=== PATIENT | female | born 1995 | race Caucasian/White ===

== ENCOUNTER 2018-05-09 11:39 | Emergency (ER) | payer SELFPAY ==
--- NOTE | 2018-05-09 12:13 | ER Document Report ---
ED Medical Screen (RME) - General Chief Complaint: Vaginal Discharge Stated Complaint: ABDOMINAL PAIN, PAINFUL URINATION Time Seen by Provider: 05/09/18 12:06 Notes: Patient is a 23-year-old female that presents to the emergency department for chief complaint of vaginal discharge, urinary frequency and dysuria. Patient reports his been having pelvic cramping associated with the symptoms as well, she went to be checked out she did have atrial vaginosis back in January of last year and is concerned that it may have come back. She also is concerned about psoriasis along the back of her scalp, and is wondering if she could be treated for this as well.. ROS: Other than noted above, the 12 point review of systems was reviewed with the patient and were negative, all pertinent findings are included in the HPI. PHYSICAL EXAMINATION: Vital signs reviewed. GENERAL: Well-appearing, well-nourished and in no acute distress. HEAD: Atraumatic, normocephalic. There is noted to be psoriatic plaque noted on the base of the scalp posteriorly EYES: Pupils equal round extraocular movements intact, conjunctiva are normal. ENT: Nares patent NECK: Normal range of motion CV: Heart regular rate and rhythm LUNGS: No respiratory distress Musculoskeletal: Normal range of motion NEUROLOGICAL: Normal speech PSYCH: Normal mood, normal affect. MDM: Patient seen and examined for rapid initial assessment. Vital signs reviewed. A comprehensive ED assessment and evaluation of the patient, analysis of test results and completion of the medical decision making process will be conducted by additional ED providers. *Note is created using voice recognition software and may contain spelling, syntax or grammatical errors. TRAVEL OUTSIDE OF THE [place] IN LAST 30 DAYS: No - Related Data Allergies/Adverse Reactions: No Known Allergies Allergy (Verified 05/09/18 11:42) Past Medical History - Social History Chew tobacco use (# tins/day): No Frequency of alcohol use: Rare Drug Abuse: None Renal/ Medical History: Denies: Hx Peritoneal Dialysis Physical Exam - Vital signs Vitals: Temp Pulse Resp BP Pulse Ox 98.6 F 70 16 114/60 99 05/09/18 11:55 05/09/18 11:55 05/09/18 11:55 05/09/18 11:55 05/09/18 11:55 Course - Vital Signs Vital signs: Temp Pulse Resp BP Pulse Ox 98.6 F 70 16 114/60 99 05/09/18 11:55 05/09/18 11:55 05/09/18 11:55 05/09/18 11:55 05/09/18 11:55
[2018-05-09 13:04] LABS: APPEARANCE,URINE SLIGHTLY-CLOUDY; BILIRUBIN,URINE NEGATIVE (NEGATIVE); COLOR,URINE YELLOW; GLUCOSE, URINE NEGATIVE (NEGATIVE); KETONES,URINE NEGATIVE (NEGATIVE); LEUKOCYTE ESTERASE,URINE NEGATIVE (NEGATIVE); NITRITE,URINE NEGATIVE (NEGATIVE); PROTEIN,URINE NEGATIVE (NEGATIVE); URINE SPECIFIC GRAVITY 1.011; UROBILINOGEN,URINE NEGATIVE mg/dL (<2.0)
--- NOTE | 2018-05-09 14:07 | ER Document Report ---
ED GI/ - General Chief Complaint: Vaginal Discharge Stated Complaint: ABDOMINAL PAIN, PAINFUL URINATION Time Seen by Provider: 05/09/18 12:06 Primary Care Provider: MICHAEL DUKE DO [VINAYAK PIERSON] - Follow up as needed Notes: This is a 28-year-old female to the emergency department chief complaint of dysuria and vaginal discharge. No fevers. No abnormal odors. Was recently treated for bacterial vaginosis and thinks that it may be back. Denies any changes in sexual partners. No prior history of STDs. No abdominal pain. Does have some mild pain in the left flank area that comes and goes. TRAVEL OUTSIDE OF THE [place] IN LAST 30 DAYS: No - HPI Patient complains to provider of: Dysuria, Vaginal discharge - Related Data Allergies/Adverse Reactions: No Known Allergies Allergy (Verified 05/09/18 12:17) Past Medical History - General Information source: Patient - Social History Smoking Status: Never Smoker Chew tobacco use (# tins/day): No Frequency of alcohol use: Rare Drug Abuse: None Lives with: Alone Family History: Reviewed & Not Pertinent Patient has suicidal ideation: No Patient has homicidal ideation: No - Medical History Medical History: Negative Renal/ Medical History: Denies: Hx Peritoneal Dialysis Past Surgical History: Reports: Hx Oral Surgery - wisdom teeth Review of Systems - Review of Systems Notes: Constitutional: denies: Chills, Diaphoresis, Fever, Malaise, Weakness EENT: denies: Eye discharge, Blurred vision, Tearing, Double vision, Nose congestion, Nose discharge, Throat swelling, Mouth pain Cardiovascular: denies: Palpitations, Heart racing, Orthopnea, Dyspnea, Chest pain Respiratory: denies: Cough, Hurts to breathe, Wheezing, Shortness of breath Gastrointestinal: denies: Abdominal pain, Diarrhea, Nausea, Vomiting, Black stools, bright red blood in stool Genitourinary: Positive for the following: Vaginal discharge, dysuria, mild flank pain on the left Musculoskeletal: denies: Joint pain, Joint swelling, Muscle pain, Muscle stiffness, back pain Hematologic/Lymphatic: denies: Anemia, Easy bleeding, Easy bruising, Blood clots Neurological/Psychological: denies: Confusion, Dementia, Depression, Loss of consciousness Skin: No lesions, no masses, no skin breakdown, no abscesses Physical Exam - Vital signs Vitals: Temp Pulse Resp BP Pulse Ox 98.6 F 70 16 114/60 99 05/09/18 11:55 05/09/18 11:55 05/09/18 11:55 05/09/18 11:55 05/09/18 11:55 Interpretation: Normal - General General appearance: Appears well, Alert - HEENT Head: Normocephalic, Atraumatic Eyes: Normal Pupils: PERRL - Respiratory Respiratory status: No respiratory distress Chest status: Nontender Breath sounds: Normal Chest palpation: Normal - Cardiovascular Rhythm: Regular Heart sounds: Normal auscultation Murmur: No - Abdominal Inspection: Normal Distension: No distension Bowel sounds: Normal Tenderness: Nontender Organomegaly: No organomegaly - Genitourinary External exam: Normal Speculum exam: Normal Vaginal bleeding: None Bimanuel exam: Normal - Back Back: Normal, Nontender - Extremities General upper extremity: Normal inspection, Nontender, Normal color, Normal ROM, Normal temperature General lower extremity: Normal inspection, Nontender, Normal color, Normal ROM, Normal temperature, Normal weight bearing. No: Owen's sign - Neurological Neuro grossly intact: Yes Cognition: Normal Orientation: AAOx4 Perry Coma Scale Eye Opening: Spontaneous Hannah Coma Scale Verbal: Oriented Hannah Coma Scale Motor: Obeys Commands Perry Coma Scale Total: 15 Speech: Normal Motor strength normal: LUE, RUE, LLE, RLE Sensory: Normal - Psychological Associated symptoms: Normal affect, Normal mood - Skin Skin Temperature: Warm Skin Moisture: Dry Skin Color: Normal Course - Re-evaluation Re-evalutation: 05/09/18 15:23 Is a well-appearing 23-year-old female in no acute distress. Urinalysis fairly unremarkable but will add culture. Pelvic exam unremarkable but GC chlamydia and wet prep ordered. Based on patient's symptoms and prior history of may be b eneficial to give her a prescription for some metronidazole gel. Patient seems comfortable with that plan. Will call her with the formal results of there is anything that looks abnormal. Patient is stable at this time for discharge in my opinion. 05/09/18 15:24 Laboratory 05/09/18 12:21 Urine Color YELLOW Urine Appearance SLIGHTLY-CLOUDY Urine pH 7.0 Ur Specific [place] 1.011 Urine Protein NEGATIVE Urine Glucose (UA) NEGATIVE Urine Ketones NEGATIVE Urine Blood NEGATIVE Urine Nitrite NEGATIVE Urine Bilirubin NEGATIVE Urine Urobilinogen NEGATIVE Ur Leukocyte Esterase NEGATIVE Urine WBC (Auto) 6 Urine RBC (Auto) 0 Urine Bacteria (Auto) 2+ Squamous Epi Cells Auto 3 Urine Mucus (Auto) RARE Urine Ascorbic Acid NEGATIVE Urine HCG, Qual NEGATIVE 05/09/18 18:05 Laboratory 05/09/18 05/09/18 05/09/18 12:21 12:21 12:21 Urine Color YELLOW Urine Appearance SLIGHTLY-CLOUDY Urine pH 7.0 Ur Specific [place] 1.011 Urine Protein NEGATIVE Urine Glucose (UA) NEGATIVE Urine Ketones NEGATIVE Urine Blood NEGATIVE Urine Nitrite NEGATIVE Urine Bilirubin NEGATIVE Urine Urobilinogen NEGATIVE Ur Leukocyte Esterase NEGATIVE Urine WBC (Auto) 6 Urine RBC (Auto) 0 Urine Bacteria (Auto) 2+ Squamous Epi Cells Auto 3 Urine Mucus (Auto) RARE Urine Ascorbic Acid NEGATIVE Urine HCG, Qual NEGATIVE Epi Cells (Wet Prep) Bacteria (Wet Prep) Trichomonas (Wet Prep) Vaginal WBC Vaginal RBC Vaginal Yeast Chlamydia DNA (PCR) Cancelled NOT DETECTED N.gonorrhoeae DNA (PCR) Cancelled NOT DETECTED 05/09/18 15:19 Urine Color Urine Appearance Urine pH Ur Specific [place] Urine Protein Urine Glucose (UA) Urine Ketones Urine Blood Urine Nitrite Urine Bilirubin Urine Urobilinogen Ur Leukocyte Esterase Urine WBC (Auto) Urine RBC (Auto) Urine Bacteria (Auto) Squamous Epi Cells Auto Urine Mucus (Auto) Urine Ascorbic Acid Urine HCG, Qual Epi Cells (Wet Prep) 4+ EPITHELIALS SEEN Bacteria (Wet Prep) 4+ BACTERIA SEEN Trichomonas (Wet Prep) NO TRICHOMONAS SEEN Vaginal WBC 2+ WBCS SEEN Vaginal RBC FEW RBCS SEEN Vaginal Yeast NO YEAST SEEN Chlamydia DNA (PCR) N.gonorrhoeae DNA (PCR) - Vital Signs Vital signs: Temp Pulse Resp BP Pulse Ox 98.6 F 74 18 122/61 99 05/09/18 11:55 05/09/18 15:32 05/09/18 15:32 05/09/18 15:32 05/09/18 15:32 Discharge - Discharge Clinical Impression: Bacterial vaginosis Condition: Good Disposition: HOME, SELF-CARE Instructions: Vaginosis, Bacterial ([facility]) Prescriptions: Metronidazole [Metrogel 0.75% Vaginal Gel] 1 applic PV QHS 2 Days #2 tube Referrals: MICHAEL DUKE DO [VINAYAK PIERSON] - Follow up as needed
[2018-05-09 15:34] VITALS: BP 122/61
[2018-05-09 15:43] LABS: BACTERIA (WET MOUNT) 4+ BACTERIA SEEN; EPITHELIALS (WET MOUNT) 4+ EPITHELIALS SEEN; RBCS (WET MOUNT) FEW RBCS SEEN; T.VAGINALIS (WET MOUNT) NO TRICHOMONAS SEEN; WBCS (WET MOUNT) 2+ WBCS SEEN; YEAST (WET MOUNT) NO YEAST SEEN
[2018-05-09 17:19] LABS: CHLAM PCR NOT DETECTED (NOT DETECT); GON PCR NOT DETECTED (NOT DETECT)
== END 2018-05-09 15:34 | disposition home or self-care (01) ==
LOC: ER 11:39
DX: N76.0 Acute vaginitis (principal); B96.89 Other specified bacterial agents as the cause of diseases classified elsewhere
CPT/HCPCS: 81001; 81025; 87086; 87088; 87210; 87491; 87591; 99283